=== PATIENT | female | born 1950 | race Caucasian/White ===

== ENCOUNTER 2021-12-16 11:58 | Inpatient (IN) | payer MEDICARE, OTHER, SELFPAY ==
[2021-12-16] VITALS (16 sets, daily range): BP systolic 111–172; BP diastolic 45–129; PULSE 59–74; RESP 14–24; TEMP 36.6–36.8; O2SAT 93–96; BMI 33.6; BMI 31.4
--- NOTE | 2021-12-16 12:02 | CT_ITS ---
PROCEDURE INFORMATION: Exam: CT Head Without Contrast Exam date and time: 12/16/2021 12:15 PM Age: 71 years old Clinical indication: Pain; Headache not specified TECHNIQUE: Imaging protocol: Computed tomography of the head without contrast. Radiation optimization: All CT scans at this facility use at least one of these dose optimization techniques: automated exposure control; mA and/or kV adjustment per patient size (includes targeted exams where dose is matched to clinical indication); or iterative reconstruction. COMPARISON: No relevant prior studies available. FINDINGS: Brain: Mild nonspecific hypoattenuation in the subcortical and periventricular white matter, which is most often the sequela of chronic small vessel ischemic disease. No evidence of intracranial hemorrhage or an acute cortical infarct. Intracranial vascular calcifications. Cerebral ventricles: No ventriculomegaly. Paranasal sinuses: No fluid levels. Mastoid air cells: Visualized mastoid air cells are well aerated. Bones/joints: No acute fracture. Soft tissues: Unremarkable. IMPRESSION: 1. No evidence of an acute intracranial process. 2. Mild nonspecific hypoattenuation in the subcortical and periventricular white matter, which is most often the sequela of chronic small vessel ischemic disease.
--- NOTE | 2021-12-16 12:02 | XR_ITS ---
PROCEDURE INFORMATION: Exam: XR Lumbosacral Spine Exam date and time: 12/16/2021 12:34 PM Age: 71 years old Clinical indication: Low back pain and sciatica; Left; Additional info: Left leg pain TECHNIQUE: Imaging protocol: Radiologic exam of the lumbosacral spine. Views: 2 or 3 views. COMPARISON: No relevant prior studies available. FINDINGS: Bones/joints: Mild rotoscoliosis, concave to the right. Mild spondylosis. Vertebral body heights maintained. Soft tissues: Surgical clips in the RUQ and pelvis. Vascular stents project over the right iliac artery region. Vasculature: Severe vascular calcifications. Punctate calcifications in the bilateral renal hilar regions are nonspecific and could be renal calculi, but are likely vascular calcifications. Other findings: Elevation of the right hemidiaphragm. IMPRESSION: No definite acute process. Otherwise, as above.
--- NOTE | 2021-12-16 12:02 | XR_ITS ---
PROCEDURE INFORMATION: Exam: XR Left Hip Exam date and time: 12/16/2021 12:34 PM Age: 71 years old Clinical indication: Hip pain; Left hip; Patient HX: PT has polio-- she got it when she was a baby-- if currently effects right side TECHNIQUE: Imaging protocol: Radiologic exam of the Left hip. Views: 2 or 3 views hip with pelvis when performed. COMPARISON: No relevant prior studies available. FINDINGS: Bones/joints: Scoliosis. Moderate narrowing of the right hip joint. Mild narrowing of the left hip joint. No evidence of an acute fracture or dislocation. Soft tissues: Postsurgical changes in the pelvis and left groin. Vasculature: Vascular stents in the right iliac region and left lower extremity. Severe vascular calcifications. IMPRESSION: No acute process.
--- NOTE | 2021-12-16 12:09 | HMH.EDGENADL ---
Discharge Plan Disposition Patient Disposition: Admitted as Observation Condition: Fair Clinical Impressions Clinical Impression: Weakness, Unable to ambulate, Contracture of joint of left foot Discharge ED Provider: Monika Jerry Adult HPI General Chief complaint: Weakness Stated complaint: weakness Time Seen by Provider: 12/16/21 12:01 Mode of Arrival: EMS Source of Information: Patient Limitations: No Limitations History of Present Illness HPI narrative: 71-year-old female presenting to the emergency department with left leg weakness. Symptoms started yesterday. When she woke up, felt like her foot was weak and she had difficulty raising her toes/ walking. Required help from family members to move around the house, from chair to bed. Today, symptoms were even worse. Unable to move her foot. She is able to flex and extend her left knee. No particular pain. Had intermittent headaches over the last few days. Her blood pressure at home has been elevated as high as 180 systolic. She takes medication for high blood pressure. She has no numbness, weakness, tingling in the upper extremities. No speech difficulty. No vision changes. She has weakness on the right, had polio as a child. This weakness is not worse than normal. No back pain, falls, trauma. No recent illness, fevers, chills. No medications prior to arrival. She arrives by EMS. [facility] Here visiting family Related Data Home Medications Medication Instructions Recorded Confirmed amlodipine 10 mg tablet 10 mg PO DAILY cardiac 12/16/21 12/16/21 glimepiride 4 mg tablet 4 mg PO BID Diabetes 12/16/21 12/16/21 hydrocodone 7.5 mg-acetaminophen 1 tab PO Q6 Pain 12/16/21 12/16/21 325 mg tablet losartan 100 mg tablet 100 mg PO DAILY Cholesterol 12/16/21 12/16/21 metoprolol succinate 100 mg 100 mg PO DAILY cardiac 12/16/21 12/16/21 tablet,extended release 24 hr omeprazole 40 mg capsule,delayed 40 mg PO DAILY GERD 12/16/21 12/16/21 release Allergies Allergy/AdvReac Type Severity Reaction Status Date / Time Codeine Allergy Unknown Uncoded 03/04/17 15:08 [facility] Medical History Diabetes GERD (gastroesophageal reflux disease) High cholesterol Hypertension Paresthesia of right leg Polio Surgical History H/O total hysterectomy Family History (Updated 12/16/21 @ 18:34 by Kathy Mckeon, RN) Other Family history of hyperlipidemia Family history of hypertension Social History (Updated 12/16/21 @ 18:37 by Kathy Mckeon, RN) Smoking Status: Former smoker alcohol intake: never current occupational status: disabled Travel in the last 8 weeks: None ROS Obtained: Yes All systems reviewed & no additional complaints except as documented Constitutional Constitutional: Denies anorexia, Denies chills, Denies fever(s), Reports headache(s) and Reports weakness (left foot and lower leg) Eyes Eyes: Denies diplopia, Denies loss of vision and Denies sensitivity to light ENT Ears, Nose, Mouth, and Throat: Denies dizziness, Reports headache(s) and Denies neck pain Cardiovascular Cardiovascular: Denies chest pain, Denies dyspnea, Denies palpitations and Denies pedal edema Respiratory Respiratory: Denies cough, Denies dyspnea and Denies pain with breathing Gastrointestinal Gastrointestingal: Denies abdominal pain, nausea or vomiting Genitourinary Female Genitourinary: Denies dysuria and Denies flank pain Musculoskeletal Musculoskeletal: Denies back pain, Denies joint swelling, Reports muscle cramps, Reports muscle weakness, Reports myalgias, Denies neck pain, Denies numbness and Denies tingling Integumentary/Breasts Skin/Breast: Denies lesions and Denies rash Neurologic Neurologic: Denies dizziness, Reports headache(s), Denies loss of vision, Denies numbness, Denies tingling and Reports weakness (left foot and lower l
--- NOTE | 2021-12-16 12:13 | PC.NURSE ---
pt assisted with bedpan at this time.
--- NOTE | 2021-12-16 12:18 | PC.NURSE ---
pt to radiology at this time
[2021-12-16 12:48] LABS: Basophils # 0.2 K/mm3 (0-0.2); Basophils % 1.5 % (0.1-2.0); Eosinophils # 0.2 K/mm3 (0.0-0.4); Eosinophils % 1.8 % (0.1-12.0); Hematocrit 48.8 % (37.0-47.0); Hemoglobin 16.1 g/dL (12.2-16.2); Lymphocytes # 2.1 K/mm3 (0.7-4.5); Lymphocytes % 18.8 % (10-50); Mean Corpuscular HGB Conc 33.1 g/dL (31.8-35.4); Mean Corpuscular Volume 90.6 fl (81-99); Mean Platelet Volume 8.7 fl (7.4-10.4); Monocytes # 0.3 K/mm3 (0.1-1.0); Monocytes % 2.6 % (1.7-9.3); Neutrophils # 8.2 K/mm3 (1.8-7.8); Neutrophils % 75.2 % (37.0-80.0); Platelet Count 311 K/mm3 (142-424); Red Blood Count 5.39 M/mm3 (4.20-5.40); Red Cell Distribution Width 13.8 % (11.5-17.5); White Blood Count 10.9 K/mm3 (4.8-10.8)
[2021-12-16 12:52] LABS: Chloride 98 mmol/L (98-107); Sodium 138 mmol/L (136-145)
[2021-12-16 12:53] LABS: Potassium 3.8 mmoL/L (3.5-5.1)
[2021-12-16 12:55] LABS: Alanine Aminotransferase 47 U/L (12-78); Albumin/Globulin Ratio 0.9 (1.1-1.8); Alkaline Phosphatase 166 U/L (38-126); Anion Gap 14.8 mEq/L (5-15); Aspartate Amino Transferase 50 U/L (14-36); Bilirubin,Total 0.2 mg/dl (0.2-1.3); Blood Urea Nitrogen 9 mg/dl (7-17); Calcium 8.6 mg/dl (8.4-10.2); Carbon Dioxide 29 mmol/L (22.0-30.0); Creatinine Clearance Estimated 56 mL/min (50-200); Estimated Glomerular Filt Rate 122 ml/min (>60); GFR (African American) 148 ML/MIN (>60); Globulin 4.6 g/dL (1.3-3.2); Glucose 316 mg/dl (74-100); Phosphorous 3.4 mg/dl (2.5-4.5); Total Protein,Serum 8.6 g/dl (6.3-8.2)
[2021-12-16 12:56] LABS: Magnesium 1.6 mg/dl (1.6-2.3)
--- NOTE | 2021-12-16 14:37 | PC.NURSE ---
MD REQUESTED TRYING TO AMBULATE , PT WAS ABLE TO GET UP OUT OF BED , BUT UNABLE TO AMBULATE WITHOUT ALOT OF ASSISTANCE L FOOT TURNS IN AND UNABLE TO BARE WEIGHT , PT HAS A HX OF CRIPPLED R FOOT THAT SHE CANT NOT USE . PT SITTING UP IN CHAIR
[2021-12-16 16:26] LABS: Coronavirus 19, PCR Not Detected (NotDetected); Influenza A, PCR Not Detected (NotDetected); Influenza B, PCR Not Detected (NotDetected)
--- NOTE | 2021-12-16 16:26 | PC.NURSE ---
FOOD TRAY FOR PT
--- NOTE | 2021-12-16 17:27 | PC.NURSE ---
DR Truman ruiz
--- NOTE | 2021-12-16 17:31 | PC.NURSE ---
Dr Jerry speaking with Dr Laughlin
--- NOTE | 2021-12-16 17:36 | PC.NURSE ---
HOUSE NOTIFIED OF ADMISSION
--- NOTE | 2021-12-16 18:05 | PC.NURSE ---
called report to nicole grant
[2021-12-16 18:15] LABS: Thyroid Stimulating Hormone 0.94 uIU/mL (0.465-4.68)
--- NOTE | 2021-12-16 18:19 | PC.NURSE ---
PT BEING TRANSPORTED TO THE FLOOR
--- NOTE | 2021-12-16 18:22 | PC.NURSE ---
Pt Arrived to the floor at this time
[2021-12-16 18:34] LABS: Vitamin B12 461 pg/mL (239-931)
[2021-12-16 20:11] LABS: POC Glucose,Bedside 254 (70-110)
[2021-12-17 04:00] VITALS: BP 125/53; PULSE 56; RESP 16; TEMP 36.6; O2SAT 93
--- NOTE | 2021-12-17 04:18 | PC.NURSE ---
Shift summary: Pt AOx4. Pt has not voiced any c/o to staff. Pt requires 2 person assist to BSC. Call light within reach.
[2021-12-17 04:28] VITALS: BMI 31.0
[2021-12-17 06:14] LABS: POC Glucose,Bedside 149 (70-110)
--- NOTE | 2021-12-17 07:18 | P.CONPHA_ITS ---
[facility] Pharmacy VTE Monitoring Patient Demographics Admission date: 12/16/21 Report Date: 12/17/21 Time: 07:18 Patient Allergies Codeine Allergy (Unknown, Uncoded 03/04/17 15:08) Height: 1.42 m Weight: 62.641 kg Current Active Problems (Updated 12/16/21 @ 17:36 by Monika Jerry DO) Weakness (Acute) Unable to ambulate (Acute) Contracture of joint of left foot (Acute) VTE Risk Labs: VTE Related Lab Results Hgb 16.1 g/dL (12.2-16.2) 12/16/21 12:41 Hct 48.8 % (37.0-47.0) H 12/16/21 12:41 Plt Count 311 K/mm3 (142-424) 12/16/21 12:41 BUN 9 mg/dl (7-17) 12/16/21 12:41 Creatinine 0.50 mg/dl (0.52-1.04) L 12/16/21 12:41 Estimated Creat Clear 56 mL/min (50-200) 12/16/21 12:41 VTE Score: 2 Prophylaxis VTE Prophylaxis Ordered?: Yes Types of VTE Prophylaxis: TEDS Knee High Location of Applied Device: Bilateral Lower Extremeties
--- NOTE | 2021-12-17 07:32 | HMH.PHAINT1 ---
Pharmacy Intervention Comments: Home medication reconciliation completed using outpatient pharmacy list.
[2021-12-17 08:00] VITALS: BP 143/61; PULSE 60; RESP 16; TEMP 36.6; O2SAT 92
[2021-12-17 08:14] LABS: Basophils # 0.2 K/mm3 (0-0.2); Basophils % 2.1 % (0.1-2.0); Eosinophils # 0.2 K/mm3 (0.0-0.4); Eosinophils % 1.8 % (0.1-12.0); Hemoglobin 15.2 g/dL (12.2-16.2); Lymphocytes # 4.3 K/mm3 (0.7-4.5); Lymphocytes % 36.6 % (10-50); Mean Corpuscular HGB Conc 32.3 g/dL (31.8-35.4); Mean Corpuscular Volume 89.9 fl (81-99); Mean Platelet Volume 8.4 fl (7.4-10.4); Monocytes # 0.5 K/mm3 (0.1-1.0); Monocytes % 4.1 % (1.7-9.3); Neutrophils # 6.5 K/mm3 (1.8-7.8); Neutrophils % 55.4 % (37.0-80.0); Platelet Count 370 K/mm3 (142-424); Red Blood Count 5.23 M/mm3 (4.20-5.40); Red Cell Distribution Width 14.1 % (11.5-17.5); White Blood Count 11.7 K/mm3 (4.8-10.8)
[2021-12-17 08:36] LABS: Chloride 102 mmol/L (98-107); Sodium 141 mmol/L (136-145)
[2021-12-17 08:37] LABS: Potassium 3.6 mmoL/L (3.5-5.1)
[2021-12-17 08:40] LABS: Anion Gap 14.6 mEq/L (5-15); Blood Urea Nitrogen 9 mg/dl (7-17); Calcium 8.3 mg/dl (8.4-10.2); Carbon Dioxide 28 mmol/L (22.0-30.0); Creatinine Clearance Estimated 52 mL/min (50-200); Estimated Glomerular Filt Rate 99 ml/min (>60); GFR (African American) 120 ML/MIN (>60); Glucose 211 mg/dl (74-100); Magnesium 1.6 mg/dl (1.6-2.3)
--- NOTE | 2021-12-17 08:40 | MR_ITS ---
FINAL REPORT CLINICAL HISTORY: R/O STROKE. headache, vomiting, left leg weakness. FINDINGS: Multiplanar MR imaging of the brain was performed without contrast. There is mild age-appropriate atrophy. There are scattered foci of increased T2 signal in the cerebral white matter that have a nonspecific appearance but likely represent mild chronic ischemic/gliotic changes. There is no evidence of intracranial hemorrhage or mass. No abnormal ventricular dilatation is identified. No abnormal extra-axial fluid collection is seen. There is a 17 mm focus of restricted diffusion in the right posterior periventricular region. There is a second 3 mm focus in the right parietal convexity. Normal major vessel vascular flow voids are seen. IMPRESSION: Acute infarcts in the right posterior periventricular region and right parietal convexity as above. Age-appropriate atrophy and moderate chronic ischemic/gliotic changes. The patient's nurse, Miryam, was notified of these findings at 11:40 a.m. on 12/17/2021. Reviewed, Interpreted and Dictated by Joey Lacy III, MD Transcribed by Jackelin Trinh Authenticated and [facility]
--- NOTE | 2021-12-17 08:40 | CT_ITS ---
FINAL REPORT TECHNIQUE: Axial imaging of the lumbar spine was obtained without contrast. Sagittal and coronal reformatted images were also obtained and reviewed. This study was performed with techniques to keep radiation doses as low as reasonably achievable (ALARA). Individualized dose reduction techniques using automated exposure control or adjustment of mA and/or kV according to the patient''s size were employed. CLINICAL HISTORY: back pain with left leg weakness FINDINGS: There is no fracture. Levoscoliosis is noted. There is mild anterolisthesis of L5 on S1. The disc spaces are preserved.There is no evidence of significant central canal stenosis. T12-L1: An annular bulge is present. No evidence of central canal stenosis or neural foraminal narrowing. L1-L2: There is an annular bulge the. No evidence of central canal stenosis or neural foraminal narrowing. L2-L3: There is an annular bulge with mild left neural foraminal narrowing. L3-L4: There is an annular bulge, facet arthropathy and vertebral osteophytes. There is mild right and moderate left neural foraminal narrowing. L4-L5: There is an annular bulge and facet arthropathy. There is mild bilateral neural foraminal narrowing. L5-S1: There are L5 pars defects with grade 1 anterolisthesis of L5 on S1. There is an annular bulge and facet arthropathy. There is a left foraminal disc protrusion. There is moderate right and severe left neural foraminal narrowing. There is impingement of the left L5 nerve root in the neural foramen. Note is made of fatty infiltration of the liver. There is a left renal mass or masses that are not definitely simple cysts. There is right common iliac artery stent. There is a 10 mm lytic lesion in the medial left iliac bone with a partially sclerotic rim that is nonspecific. IMPRESSION: Left foraminal disc protrusion at L5-S1 with impingement of the left L5 nerve root. L5 pars defects with grade 1 anterolisthesis of L5 on S1. Multilevel degenerative disc disease with areas of neural foraminal narrowing. Left renal mass or masses are not definitely simple cysts. Recommend renal mass protocol CT. Nonspecific lytic lesion in the medial left iliac bone could be further evaluated with nuclear medicine bone scan or follow-up CT. Reviewed, Interpreted and Dictated by Joey Lacy III, MD Transcribed by Chuck Araya Authenticated and [facility]
--- NOTE | 2021-12-17 10:03 | HMH.PTEV ---
Physical Therapy Evaluation Rehab PT IP Evaluation Start: 12/17/21 08:42 Freq: ONCE Status: Active Protocol: Document 12/17/21 09:43 JEAN-PIERRE (Rec: 12/17/21 10:02 JEAN-PIERRE [id number]) Subjective/History History History 71-year-old female presenting to the emergency department with left leg weakness. Symptoms started yesterday. When she woke up, felt like her foot was weak and she had difficulty raising her toes/ walking. Required help from family members to move around the house, from chair to bed. Subjective Subjective Pt reports c/o nausea and vomiting, and pain and weakness in LLE Rehab PT IP Eval Objective Appearance Patient Behavior Appropriate,Cooperative, Fatigued Patient Orientation Place,Name,Birthday,Year, Situation Difficulty following instructions none Speech Pattern Appropriate,Soft-Spoken Ambulation Patient Able to Ambulate Yes Ambulation Observation IP General Gait Pattern Observation Narrow Based Gait,Shuffling Step Ambulation Distance (feet) 2 Ambulation Assistive Device None Ambulation Ability Minimal x 1 (25% assist) Balance Ability to Arise Able, uses arms to help Sitting Balance Steady, safe Standing Balance Unsteady Dynamic Sitting Balance Ability Good Dynamic Standing Balance Ability Poor Transfers Bed Transfer Ability Minimal x 2 (25% assist) Chair Transfer Ability Minimal x 2 (25% assist) Sit to Stand Bed Transfer Ability Minimal x 2 (25% assist) Sit to Stand Chair Transfer Ability Minimal x 2 (25% assist) Rehab PT IP prob,goals,plan Problems Date of Evaluation: 12/17/21 PT IP Problems Bed Mobility,Transfers,Gait, Balance,Self care,Safety Rehab Potential Rehab Potential Fair Equipment Needs Assistive Devices Rolling / Wheeled Walker Plan PT Intervention Plan Bed Mobility,Transfers,Gait, Balance,Self care,Safety, Therapeutic Exercise PT Plan Frequency BID Duration LOS Discharge Goals Bed Transfer Ability Supervision/Stand by Sit to Stand Chair Transfer Ability Contact Guard/Hand Hold Ambulation Assistive Device Rolling Walker Ambulation Distance (feet) 5 Discharge Plan
--- NOTE | 2021-12-17 10:19 | PC.NURSE ---
pt off floor with ct and mri staff
--- NOTE | 2021-12-17 10:23 | HMH.OTEV ---
OT Inpatient Evaluation Rehab OT IP Evaluation Start: 12/17/21 08:43 Freq: ONCE Status: Complete Protocol: Document 12/17/21 09:59 SOLACOSTA (Rec: 12/17/21 10:23 [facility] [id number]) Rehab OT IP Assessment Subjective History Pt oriented x 3 on arrival. Pt agreeable to engage in therapy session. Pt was admitted 12/16/21 due to weakness, unable to ambulate, and contracture of joint of left foot. Prior to being in the hospital she lived at home alone and did not have family check on her. Pt claims she was independent with all ADLs and IADLs. Pt was still driving and she used a cane at times during ambulation. Subjective I am so sick to my stomach. Pt sitting at eob on arrival. Pt required min assist to go from sitting to supine in bed. Pt required min greyson x 2 to be pulled up in bed for optimal positioning. pt was left with call campo and all other needs in reach. Objective Patient Orientation Person,Place,Birthday Upper Extremity Gross ROM WFL Bed Mobility bed mobility-scooting,bed mobility - supine/sit,bed mobility - rolling Assist Level Minimal x 2 (25% assist) Rehab OT IP prob,goals,plan Problems Date of Evaluation: 12/17/21 OT IP Problems Bed Mobility,Transfers,Balance ,Self care,Safety Rehab Potential Rehab Potential Good Equipment Needs Assistive Devices Rolling / Wheeled Walker Plan OT intervention Plan Bed Mobility,Transfers,Balance ,Self care,Safety,Therapeutic Exercise OT Plan Frequency BID Duration LOS Discharge Goals Bed Mobility Ability Standby Assistance Sit to Stand Chair Transfer Ability Contact Guard/Hand Hold Chair Transfer Ability Contact Guard/Hand Hold Chair Transfer Technique Sit to/from Ambulatory Chair Transfer Assistive Devices Rolling Walker Feeding Ability Assist with Tray Set Up Lower Body Dressing Ability Assistance X1 Upper Body Dressing Ability Standby Assistance Bathin
--- NOTE | 2021-12-17 11:41 | SW/DCPLANNER ---
Addendum entered by Trini Vidal 12/18/21 11:02: This patient has been approved for SNF level of care at [facility] today. COVID swab has been ordered prior to discharge. Patient will be discharged today. Addendum entered by Trini Vidal 12/18/21 07:58: Precert has been started on this patient per Alaina mendes/ [facility]. Original Note: I spoke with this patient regarding discharge plans once medically stable for discharge. PT/OT has recommended SNF level of care at time of discharge. Patient stated that she resides at her home in [facility]: she is in [facility]. Patient is agreeable to SNF level of care at time of discharge. Patient prefers a [facility] facility. I spoke with Alaina at [facility]: beds are available and patient information has been faxed. I will follow up with lAaina once information is reviewed. Discharge date is unknown at this time. [facility] fax # [phone]
--- NOTE | 2021-12-17 11:47 | PC.NURSE ---
notified Dr Laughlin on brain mri results
--- NOTE | 2021-12-17 12:03 | CA_ITS ---
APPROVED REPORT EXAM: Comprehensive 2D, Doppler, and color-flow Echocardiogram Authorization Representative: Netta Christian, INOCENCIO, RVS Ht: 4 ft 8 in Wt: 136lbs BSA: 1.51 BP: 155/76 mmHg Indications: Weakness, Ex-smoker, CAD-2 stents, HTN, HLD, Polio-chronic right hemiplegia, GERD, JAKUB post bilateral carotid endartectomy 2D Dimensions IVSd 0.83 cm LVEF (Visual) 86.30 % PWd 0.99 cm LA Volume 56.50 mL LVDd 5.11 cm LA Volume Index [id number] mL/m2 (M/F) 16-34 LVDs 2.24 cm Aortic Root 2.24 cm Left Atrium 2.95 cm LVOT 1.91 cm (M/F) 1.5-2.5 M-Mode Dimensions LA Diam 4.23 cm (1.9-4.0) Ao Diam 2.40 cm (2.0-3.7) EPSs 0.39 cm TAPSE 2.30 (<1.7) LV Diastology E Decel Time 160.00 (160-240 msec) E/A Ratio 1.08 MED E' 7.30 (< 7 cm/sec) MED A' 9.50 cm/s E'/MED E' Ratio 14.55 (>14) LAT E' 5.40 (<10 cm/sec) LAT A' 8.90 cm/s E/LAT E' Ratio 19.67 (>14) Aortic Valve LVOT Max 98.00 (70-110 cm/s) LVOT VTI 23.33 cm AoV Peak Efrem. 198.00 (50-130 cm/s) AO Peak GR. 15.70 mmHg AO Mean GR. 8.90 (<5 mmHg) AO VTI 50.04 (18-25 cm) MISTY (VTI) 1.34 (2.5-4.5 cm2) Mitral Valve MV A Velocity 98.00 (40-130 cm/s) E/A Ratio 1.08 MV Decel. Time 160.00 (160-240 ms) MV PHT 47.00 ms Pulmonary Valve PV Peak Velocity 104.00 (50-150 cm/s) TX End VMAX 128.00 cm/s Tricuspid Valve TR P. Velocity 236.00 cm/s RAP Estimate 10.00 mmHg RVSP 32.20 mmHg Left Ventricle Technically difficult study because of the patient factors and poor acoustic windows. Left atrium is mildly enlarged, left ventricle is normal size mild concentric left ventricular hypertrophy, estimated ejection fraction 55% with no obvious regional wall motion abnormality, endocardial surfaces are very poorly visualized. Grade 2 diastolic dysfunction seen with tissue Doppler evidence of raise left atrial pressure. Right Ventricle Right atrium and right ventricle mildly enlarged with normal contractility. Aortic Valve Aortic valve is thickened and calcified without aortic stenosis or aortic insufficiency. Mitral Valve Mitral valve leaflets are minimally thickened there is mild mitral regurgitation. Tricuspid Valve Tricuspid valve grossly normal, there is mild tricuspid regurgitation, calculated right ventricular systolic pressure is 32 mmHg. Pulmonic Valve Pulmonic valve is poorly visualized. Great Vessels Aortic root is normal size. Inferior vena cava is poorly visualized. Pericardium No significant pericardial effusion noted. Conclusion 1. Technically difficult study due to patient factors and poor acoustic windows, endocardial surfaces are very poorly visualized, normal left ventricular size, preserved left ventricular systolic function, estimated ejection fraction 55% with no obvious regional wall motion abnormality in the visualized segments. Grade 2 diastolic dysfunction seen with tissue Doppler evidence of raised left atrial pressure. 2. Mildly enlarged right ventricle with normal contractility. 3. Mild mitral and tricuspid regurgitation, calculated right ventricular systolic pressure 32 mmHg. 4. No significant pericardial effusion noted. 5. Inferior vena cava is poorly visualized. Electronically signed by : Jitendra Odonnell MD 12/18/2021 05:45:11
--- NOTE | 2021-12-17 12:03 | CA_ITS ---
FINAL REPORT TECHNIQUE: Color Doppler, duplex Doppler and beasley scale sonography of the bilateral neck arterial vasculature was performed. Velocities were measured in the carotid arteries. Stenosis evaluation based on the validated velocity criteria. CLINICAL HISTORY: Hx bilateral carotid endartectomy 2 years ago. Stroke, Ex smoker, Hx-polio with chronic right hemiplegia, CAD-coronary stents FINDINGS: The peak systolic velocity of the right common carotid artery is 101 cm/s. The peak systolic velocity of the right internal carotid artery is 124 cm/s and end diastolic velocity 20 cm/s. The ICA/CCA ratio is 1.2. A mild amount of plaque is present. The right external carotid artery is patent. The right vertebral artery is patent with antegrade flow. The peak systolic velocity of the left common carotid artery is 96 cm/s. The peak systolic velocity of the left internal carotid artery is 97 cm/s and end diastolic velocity 14 cm/s. The ICA/CCA ratio is 1.0. A mild amount of plaque is present. The left external carotid artery is patent.The left vertebral artery is patent with antegrade flow. IMPRESSION: Less than 50% bilateral carotid stenoses. Bilateral patent vertebral arteries with antegrade flow. If indicated, CTA or MRA could further evaluate. Reviewed, Interpreted and Dictated by Joey Lacy III, MD Transcribed by Natasha Mims Authenticated and [facility]
--- NOTE | 2021-12-17 12:05 | EXP.HP ---
History of Present Illness *Admission Date: 12/16/21 *Reason for visit:: Cant use left leg *History of present illness: 71-year-old white female who lives in [place], [place], who has a history of having polio when she was 3 years old and has chronic hemiplegia of the right side, worse in her right leg with muscle atrophy and problems with ongoing ambulation. She is able to live by herself and sees a physician in [place], [place]. She was visiting her grand daughter in [facility] when yesterday she was suddenly unable to walk because of a contracture/significant weakness in her left leg which is normally her stronger leg. She was unable to bear weight. She notes that about a week ago she had a fall but did not notice any weakness or pain in the left leg after the fall event. She came to the emergency department, x-rays of the back and CT of the head were unremarkable, metabolic studies were unremarkable but given the fact she was nonambulatory she was admitted to the hospital for further evaluation. [facility] Medical History Diabetes GERD (gastroesophageal reflux disease) High cholesterol Hypertension Paresthesia of right leg Polio Surgical History H/O total hysterectomy Family History (Updated 12/16/21 @ 18:34 by Kathy Mckeon RN) Family history of hypertension Family history of hyperlipidemia Social History (Updated 12/16/21 @ 18:37 by Kathy Mckeon RN) Smoking Status: Former smoker alcohol intake: never current occupational status: disabled Travel in the last 8 weeks: None Review of Systems Review of Systems Review of systems:: pertinent systems reviewed and negative unless documented below Constitutional Constitutional: Reports headache(s) and Reports weakness (left foot and lower leg) Eyes Eyes: Denies loss of vision ENT Ears, Nose, Mouth, and Throat: Denies dizziness and Reports headache(s) *Musculoskeletal Musculoskeletal: Denies numbness and Denies tingling *Neurologic Neurologic: Denies dizziness, Reports headache(s), Denies loss of vision, Denies numbness, Denies tingling and Reports weakness (left foot and lower leg) Meds Home Medications and Allergies Home Medications Medication Instructions Recorded Confirmed Type amlodipine 10 mg tablet 10 mg PO DAILY Blood pressure 12/16/21 12/16/21 History glimepiride 4 mg tablet 4 mg PO BID Diabetes 12/16/21 12/16/21 History hydrocodone 7.5 mg-acetaminophen 1 tab PO Q6 Pain 12/16/21 12/16/21 History 325 mg tablet losartan 100 mg tablet 100 mg PO DAILY blood pressure 12/16/21 12/16/21 History metoprolol succinate 100 mg 100 mg PO DAILY blood pressure 12/16/21 12/16/21 History tablet,extended release 24 hr omeprazole 40 mg capsule,delayed 40 mg PO DAILY GERD 12/16/21 12/16/21 History release New Prescriptions to Start Prescriptions: Allergies Allergy/AdvReac Type Severity Reaction Status Date / Time Codeine Allergy Unknown Uncoded 03/04/17 15:08 Exam Data for Last 24 hours Vital signs and Labs for Last 24 Hours: Temp Pulse Resp BP Pulse Ox 97.8 F 60 16 143/61 H 92 L 12/17/21 08:00 12/17/21 08:00 12/17/21 08:00 12/17/21 08:00 12/17/21 08:00 Laboratory Results - last 24 hr 12/16/21 12:41: WBC 10.9 H, RBC 5.39, Hgb 16.1, Hct 48.8 H, MCV 90.6, MCH 30.0, MCHC 33.1, RDW 13.8, Plt Count 311, MPV 8.7, Neut % (Auto) 75.2, Lymph % (Auto) 18.8, [place] % (Auto) 2.6, Eos % (Auto) 1.8, Baso % (Auto) 1.5, Neut # (Auto) 8.2 H, Lymph # (Auto) 2.1, [place] # (Auto) 0.3, Eos # (Auto) 0.2, Baso # (Auto) 0.2 12/16/21 12:41: Sodium 138, Potassium 3.8, Chloride 98, Carbon Dioxide 29, Anion Gap 14.8, BUN 9, Creatinine 0.50 L, Estimated Creat Clear 56, Estimated GFR 122, Est GFR ( Amer) 148, Glucose 316 H, Calcium 8.6, Phosphorus 3.4, Magnesium 1.6, Total Bilirubin 0.2, AST 50 H, ALT 47, Alkaline Phosphatase 166
[2021-12-17 12:06] LABS: POC Glucose,Bedside 260 (70-110)
[2021-12-17 15:25] VITALS: BMI 31.0
[2021-12-17 15:45] VITALS: BP 145/55; PULSE 68; RESP 16; TEMP 36.8; O2SAT 92
[2021-12-17 16:00] VITALS: PULSE 60
[2021-12-17 17:06] LABS: POC Glucose,Bedside 230 (70-110)
--- NOTE | 2021-12-17 18:01 | PC.NURSE ---
Pt is alert and oriented x4. Lungs are clear, bowel sounds are hypoactive. She was treated for nausea this am with phenergan with favorable results noted on reassessment. She's been up to the bsc with assist x1-2. BLE are very weak. Right>left. Glucose was 260 and 240 on checks. SSI administered per protocol. No complaints noted at this time. Bed is locked and in the lowest position, call light is within reach.
[2021-12-17 20:00] VITALS: BP 133/59; PULSE 60; PULSE 64; RESP 16; TEMP 36.8; O2SAT 93
[2021-12-18] VITALS: PULSE 50
[2021-12-18 01:27] LABS: POC Glucose,Bedside 165 (70-110)
[2021-12-18 04:00] VITALS: BP 131/56; PULSE 54; PULSE 55; RESP 16; TEMP 36.6; O2SAT 90
[2021-12-18 04:11] VITALS: BMI 32.6
--- NOTE | 2021-12-18 05:08 | PC.NURSE ---
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
[2021-12-18 06:19] LABS: Chloride 107 mmol/L (98-107); Potassium 3.8 mmoL/L (3.5-5.1); Sodium 140 mmol/L (136-145)
[2021-12-18 06:22] LABS: Anion Gap 12.8 mEq/L (5-15); Blood Urea Nitrogen 11 mg/dl (7-17); Calcium 7.8 mg/dl (8.4-10.2); Carbon Dioxide 24 mmol/L (22.0-30.0); Creatinine Clearance Estimated 54 mL/min (50-200); Estimated Glomerular Filt Rate 83 ml/min (>60); GFR (African American) 100 ML/MIN (>60); Glucose 178 mg/dl (74-100)
[2021-12-18 06:26] LABS: Basophils # 0.1 K/mm3 (0-0.2); Basophils % 1.5 % (0.1-2.0); Eosinophils # 0.3 K/mm3 (0.0-0.4); Eosinophils % 3.1 % (0.1-12.0); Hematocrit 41.3 % (37.0-47.0); Lymphocytes # 2.9 K/mm3 (0.7-4.5); Lymphocytes % 34.6 % (10-50); Mean Corpuscular HGB Conc 31.4 g/dL (31.8-35.4); Mean Corpuscular Hemoglobin 28.6 pg (27.0-31.2); Mean Corpuscular Volume 91.2 fl (81-99); Mean Platelet Volume 8.7 fl (7.4-10.4); Monocytes # 0.4 K/mm3 (0.1-1.0); Monocytes % 5.2 % (1.7-9.3); Neutrophils # 4.6 K/mm3 (1.8-7.8); Neutrophils % 55.7 % (37.0-80.0); Platelet Count 271 K/mm3 (142-424); Red Blood Count 4.53 M/mm3 (4.20-5.40); Red Cell Distribution Width 14.2 % (11.5-17.5); White Blood Count 8.3 K/mm3 (4.8-10.8)
[2021-12-18 06:33] LABS: POC Glucose,Bedside 158 (70-110)
[2021-12-18 08:00] VITALS: BP 123/60; PULSE 64; RESP 16; TEMP 36.7; O2SAT 90
--- NOTE | 2021-12-18 08:33 | P.PN_ITS ---
Subjective *Date: 12/18/21 *Time: 08:33 Interval history: Overall patient feels a little better, has been able to move her left foot a little bit more aggressively today. She did have normal sinus rhythm and site monitor overnight. Exam Data for Last 24 hours Vital signs and Labs for Last 24 Hours: Temp Pulse Resp BP Pulse Ox 98.0 F 64 16 123/60 90 L 12/18/21 08:00 12/18/21 08:00 12/18/21 08:00 12/18/21 08:00 12/18/21 08:00 Laboratory Results - last 24 hr 12/17/21 08:08: Sodium 141, Potassium 3.6, Chloride 102, Carbon Dioxide 28, Anion Gap 14.6, BUN 9, Creatinine 0.60, Estimated Creat Clear 52, Estimated GFR 99, Est GFR ( Amer) 120, Glucose 211 H D, Calcium 8.3 L, Magnesium 1.6 12/17/21 11:50: POC Glucose 260 H 12/17/21 16:56: POC Glucose 230 H 12/17/21 21:02: POC Glucose 165 H 12/18/21 05:58: WBC 8.3 D, RBC 4.53, Hgb 13.0 D, Hct 41.3, MCV 91.2, MCH 28.6, MCHC 31.4 L, RDW 14.2, Plt Count 271 D, MPV 8.7, Neut % (Auto) 55.7, Lymph % (Auto) 34.6, [place] % (Auto) 5.2, Eos % (Auto) 3.1, Baso % (Auto) 1.5, Neut # (Auto) 4.6, Lymph # (Auto) 2.9, [place] # (Auto) 0.4, Eos # (Auto) 0.3, Baso # (Auto) 0.1 12/18/21 05:58: Sodium 140, Potassium 3.8, Chloride 107, Carbon Dioxide 24, Anion Gap 12.8, BUN 11, Creatinine 0.70, Estimated Creat Clear 54, Estimated GFR 83, Est GFR ( Amer) 100, Glucose 178 H, Calcium 7.8 L 12/18/21 06:15: POC Glucose 158 H I & O for Last 24 hours: Intake & Output 12/15/21 12/16/21 12/17/2122 11:59 11:59 11:59 11:59 Intake Total 1025 / 1265 2477 / 2477 Output Total 950 / 950 600 / 600 Balance 75 / 315 1877 / 1877 Weight 138 lb 1.6 oz 145 lb 2 oz Constitutional Comments: Pleasant and talkative. Lungs clear. Heart rate regular. No change in the right leg exam. Her left leg has increased strength with foot dorsiflexion. Plantarflexion is also stronger. Assessment and Plan *Assessment and plan (1) Acute CVA (cerebrovascular accident): Status: Acute Category: Medical Code(s): I63.9 - Cerebral infarction, unspecified (2) Unable to ambulate: Status: Acute Category: Medical Code(s): R26.2 - Difficulty in walking, not elsewhere classified (3) Contracture of joint of left foot: Status: Acute Category: Medical Code(s): M24.575 - Contracture, left foot Plan 1. MRI yesterday showed 2 sources of acute embolic stroke, explaining patient's symptoms. She is improving and participating with physical therapy. We will continue to try to find a long-term care bed for short-term skilled rehab for this patient. 2. Patient has normal echocardiogram except for slightly dilated left atrium. She recalls that she may have been told she had atrial fibrillation when she had stents placed in her heart we will try to get these records. She is been in sinus rhythm. When she is discharged she will need a 30-day event recorder. 3. Remains on aspirin, low-dose lisinopril, we will start high-dose statin therapy. 4. Carotid Dopplers clear
--- NOTE | 2021-12-18 08:36 | PC.NURSE ---
Requested records from [facility].
[2021-12-18 11:07] LABS: Coronavirus 19, PCR Not Detected (NotDetected); Influenza A, PCR Not Detected (NotDetected); Influenza B, PCR Not Detected (NotDetected)
[2021-12-18 12:24] LABS: POC Glucose,Bedside 253 (70-110)
--- NOTE | 2021-12-18 13:51 | EXP.DC.SUM ---
General Admission date:: 12/17/21 Discharge date: 12/18/21 HPI HPI HPI: 71-year-old white female who lives in [place], [place], who has a history of having polio when she was 3 years old and has chronic hemiplegia of the right side, worse in her right leg with muscle atrophy and problems with ongoing ambulation. She is able to live by herself and sees a physician in [place], [place]. She was visiting her grand daughter in [facility] when yesterday she was suddenly unable to walk because of a contracture/significant weakness in her left leg which is normally her stronger leg. She was unable to bear weight. She notes that about a week ago she had a fall but did not notice any weakness or pain in the left leg after the fall event. She came to the emergency department, x-rays of the back and CT of the head were unremarkable, metabolic studies were unremarkable but given the fact she was nonambulatory she was admitted to the hospital for further evaluation. Hospital Course Hospital Course Hospital Course: Patient was admitted, MRI the following day showed 2 subacute strokes consistent with embolic phenomenon. Echocardiogram was done showing evidence of left atrial enlargement but no wall motion abnormalities and no evidence of acute clot. Carotid Doppler testing showed less than 50% stenosis bilaterally. Telemetry monitoring was placed and patient was in sinus rhythm. She does report a history of possibly having atrial fibrillation, records are pending. Patient was placed on anticoagulation therapy with aspirin and lisinopril, as well as high-dose statin. Tolerated this well, had some improvement in her leg and physical therapy recommended skilled care. A bed was found for her and she will be transferred there today. Please note she will need PT/OT evaluation, she will need a 30-day event recorder to find out whether or not she has paroxysmal A. fib. If this is the case she will need more aggressive anticoagulation but at this point she will be on adult low-dose aspirin, high-dose statins and low-dose lisinopril. Exam Data for Last 24 hours Vital signs and Labs for Last 24 Hours: Temp Pulse Resp BP Pulse Ox 98.0 F 64 16 123/60 90 L 12/18/21 08:00 12/18/21 08:00 12/18/21 08:00 12/18/21 08:00 12/18/21 08:00 Laboratory Results - last 24 hr 12/17/21 16:56: POC Glucose 230 H 12/17/21 21:02: POC Glucose 165 H 12/18/21 05:58: WBC 8.3 D, RBC 4.53, Hgb 13.0 D, Hct 41.3, MCV 91.2, MCH 28.6, MCHC 31.4 L, RDW 14.2, Plt Count 271 D, MPV 8.7, Neut % (Auto) 55.7, Lymph % (Auto) 34.6, [place] % (Auto) 5.2, Eos % (Auto) 3.1, Baso % (Auto) 1.5, Neut # (Auto) 4.6, Lymph # (Auto) 2.9, [place] # (Auto) 0.4, Eos # (Auto) 0.3, Baso # (Auto) 0.1 12/18/21 05:58: Sodium 140, Potassium 3.8, Chloride 107, Carbon Dioxide 24, Anion Gap 12.8, BUN 11, Creatinine 0.70, Estimated Creat Clear 54, Estimated GFR 83, Est GFR ( Amer) 100, Glucose 178 H, Calcium 7.8 L 12/18/21 06:15: POC Glucose 158 H 12/18/21 10:57: SARS-CoV-2 (PCR) Not detected, Influenza A Untype (PCR) Not detected, Influenza Type B (PCR) Not detected 12/18/21 12:05: POC Glucose 253 H I & O for Last 24 hours: Intake & Output 12/16/21 12/17/21 12/18/21 12/19/21 11:59 11:59 11:59 11:59 Intake Total 1025 / 1265 2477 / 2477 Output Total 950 / 950 600 / 600 Balance 75 / 315 1877 / 1877 Weight 138 lb 1.6 oz 145 lb 2 oz Constitutional Constitutional: no acute distress *Routine HEENT Exam Head: Present normocephalic Eye: Present EOMI and PERRL ENT: Present mucous membranes moist *Routine Neck Exam Neck: Present supple; Absent lymphadenopathy *Routine Respiratory Exam Respiratory: Present CTA bilaterally *Routine Cardiovascular Exam Cardiovascular: Present RRR *Routine Abdominal Exam Abdominal: Present soft and normoactive bowel sounds; Absent tenderness *Routine Extremities Exam Extremities: Absent cyanosis, clubbing or edema Comments: Up-to-date with co
--- NOTE | 2021-12-18 15:33 | PC.NURSE ---
report called to nicole guzmán
[2021-12-18 16:00] VITALS: BP 155/72; PULSE 66; RESP 18; TEMP 36.8; O2SAT 95
--- NOTE | 2021-12-18 16:16 | PC.NURSE ---
[facility] does not have a transfer truck available [facility]. They recommended I call [facility], who recommended [facility] first, to make sure they can't do it. [facility] gave the ok for [facility] to transport the patient. [facility] is on the way.
== END 2021-12-18 16:59 | DRG 65 ==
LOC: ER 17:36 → 2ND 17:53
PROVIDERS: Admitting Provider Internal Medicine Adolescent Medicine; Emergency Provider Emergency Medicine; PCP Pediatrics Neonatal-Perinatal Medicine; Visit Provider Internal Medicine Adolescent Medicine
DX: I63.431 Cerebral infarction due to embolism of right posterior cerebral artery (principal); G81.91 Hemiplegia, unspecified affecting right dominant side; B91 Sequelae of poliomyelitis; R29.6 Repeated falls; I10 Essential (primary) hypertension; Z87.891 Personal history of nicotine dependence
CPT/HCPCS: 36415; 70450; 70551; 72100; 72131; 73502; 80048; 80053; 82607; 82962; 83735; 84100; 84443; 85025; 93306; 93880; 97162; 97166; 97530; 99285; C9803; G0378; U0003; U0005

== ENCOUNTER 2025-02-18 08:36 | Outpatient (CLI) | payer MEDICARE, SELFPAY ==
[2025-02-18 08:58] LABS: Hematocrit 32.8 % (37.0-47.0); Hemoglobin 10.9 g/dL (12.2-16.2); Immature Granulocytes % 0.2 %; Mean Corpuscular HGB Conc 33.2 g/dL (31.8-35.4); Mean Corpuscular Hemoglobin 29.3 pg (27.0-31.2); Mean Corpuscular Volume 88.2 fl (81-99); Nucleated Red Blood Cells % 0 %; Platelet Count 306 K/mm3 (142-424); Red Blood Count 3.72 M/mm3 (4.20-5.40); Red Cell Distribution Width-SD 44.0 fL; White Blood Count 8.2 K/mm3 (4.8-10.8)
[2025-02-18 09:27] LABS: Alanine Aminotransferase 13 U/L (12-78); Albumin Level 3.5 g/dl (3.5-5.0); Albumin/Globulin Ratio 0.9 (1.1-1.8); Alkaline Phosphatase 86 U/L (38-126); Anion Gap 11.7 mEq/L (5-15); Aspartate Amino Transferase 17 U/L (14-36); Bilirubin,Total 0.4 mg/dl (0.2-1.3); Blood Urea Nitrogen 17 mg/dl (7-17); Calcium 9.2 mg/dl (8.4-10.2); Carbon Dioxide 24 mmol/L (22.0-30.0); Chloride 102 mmol/L (98-107); Cholesterol 121 mg/dl (140-200); Creatinine,Serum 0.80 mg/dl (0.52-1.04); Estimated Glomerular Filt Rate 70 ml/min (>60); GFR (African American) 85 ML/MIN (>60); Globulin 3.9 g/dL (1.3-3.2); Glucose 124 mg/dl (74-100); HDL Cholesterol 34 mg/dl (40-60); Hemoglobin A1C 6.2 % (4.0-6.0); Potassium 3.7 mmoL/L (3.5-5.1); Sodium 134 mmol/L (136-145); Total Protein,Serum 7.4 g/dl (6.3-8.2); Triglycerides 127 mg/dl (30-150)
[2025-02-18 09:46] LABS: Total Iron Binding Capacity 228 ug/dL (265-497)
[2025-02-18 10:13] LABS: Iron 39 ug/dL (37-170)
[2025-02-18 10:49] LABS: Ferritin 211 ng/ml (11.1-264)
== END 2025-02-18 23:59 | disposition home or self-care (01) ==
LOC: LAB.DROPOF 08:36
PROVIDERS: PCP Family Medicine; Visit Provider Family Medicine
DX: F03.90 Unspecified dementia, unspecified severity, without behavioral disturbance, psychotic disturbance, mood disturbance, and anxiety (principal); E11.9 Type 2 diabetes mellitus without complications; N19 Unspecified kidney failure; I10 Essential (primary) hypertension; D50.9 Iron deficiency anemia, unspecified
CPT/HCPCS: 36415; 80053; 80061; 82728; 83036; 83540; 83550; 85025

== ENCOUNTER 2025-02-28 09:31 | Outpatient (CLI) | payer MEDICARE, SELFPAY ==
[2025-02-28 10:13] LABS: Chloride 107 mmol/L (98-107); Potassium 3.4 mmoL/L (3.5-5.1); Sodium 137 mmol/L (136-145)
[2025-02-28 10:16] LABS: Anion Gap 9.4 mEq/L (5-15); Blood Urea Nitrogen 26 mg/dl (7-17); Carbon Dioxide 24 mmol/L (22.0-30.0); Creatinine,Serum 1.00 mg/dl (0.52-1.04); Estimated Glomerular Filt Rate 54 ml/min (>60); GFR (African American) 66 ML/MIN (>60)
[2025-02-28 10:17] LABS: Calcium 8.6 mg/dl (8.4-10.2); Glucose 107 mg/dl (74-100)
== END 2025-02-28 23:59 | disposition home or self-care (01) ==
LOC: LAB.DROPOF 09:32
PROVIDERS: PCP Family Medicine; Visit Provider Family Medicine
DX: I10 Essential (primary) hypertension (principal)
CPT/HCPCS: 36415; 80048